=== PATIENT | female | born 1990 | race American Indian/Alaskan Native ===

== ENCOUNTER 2016-08-03 12:43 | Emergency (ER) | payer MEDICAID ==
[2016-08-03 14:31] LABS: Bilirubin,Urine NEG (Negative); Blood,Urine NEG (Negative); Ketones,Urine NEG (Negative); Leukocyte Esterase,Urine LG (Negative); Mucus,Urine FEW /HPF; Nitrite,Urine NEG (Negative); Protein,Urine <15 mg/dL mg/dL (Negative); Urobilinogen,Urine < 2.0 mg/dL (<2.0)
--- NOTE | 2016-08-03 16:18 | Emergency Department Report ---
HPI - General Chief Complaint: Urogenital-Female Time Seen by Provider: 08/03/16 15:57 - HPI HPI: Patient is a 26-year-old female who presents to ED complaining of vaginal discharge times one week. Patient states vaginal itching began prior to discharge. Patient denies recent intercourse. Patient states she used a new scented tissue aprior to onset of symptoms. State patient states vaginal region is confined to both inside and outside of her genitourinary area. Patient denies fevers/chills/nausea/vomiting/abdominal pain /shortness of shortness of breath as chest pain or any other problems. ED Past Medical Hx - Past Medical History Hx Sickle Cell Disease: Yes (TRAIT) - Surgical History Additional Surgical History: X 2. TONSILLECTOMY. TUBAL LIGATION - Social History Smoking Status: Never Smoker Substance Use Type: None - Medications Home Medications: Home Medications Medication Instructions Recorded Confirmed Last Taken Type Terconazole [Terazol 3 Vag Cream] 1 applicator VG QHS #20 gm 08/03/16 Unknown Rx metroNIDAZOLE [Flagyl] 500 mg PO Q12HR #14 tab 08/03/16 Unknown Rx ED Review of Systems ROS: Stated complaint: VAG IRRITATION /BURNING URINATION Other details as noted in HPI Constitutional: denies: chills, fever Eyes: denies: eye pain, eye discharge, vision change ENT: denies: ear pain, throat pain Respiratory: denies: cough, shortness of breath, wheezing Cardiovascular: denies: chest pain, palpitations Endocrine: no symptoms reported Gastrointestinal: denies: abdominal pain, nausea, diarrhea Genitourinary: discharge. denies: urgency, dysuria, frequency, hematuria, abnormal menses, dyspareunia Musculoskeletal: denies: back pain, joint swelling, arthralgia Skin: denies: rash, lesions Neurological: denies: headache, weakness, paresthesias Psychiatric: denies: anxiety, depression Hematological/Lymphatic: denies: easy bleeding, easy bruising Physical Exam - Physical Exam Vital Signs: Vital Signs 08/03/16 13:30 Temperature 98.5 F Pulse Rate 72 Respiratory 17 Rate Blood Pressure 120/66 O2 Sat by Pulse 100 Oximetry Physical Exam: GENERAL: Alert and oriented x3, no apparent distress, Normal Gait, atraumatic. HEAD: Head is normocephalic and a-traumatic. EYES: Extra ocular muscles are intact. Pupils are equal, round, and reactive to light and accommodation. MOUTH:Mouth is well hydrated and without lesions Patent airways. NECK: Supple. Non edematous, No carotid bruits. No lymphadenopathy or thyromegaly. LUNGS: Symetrical with respiration, No wheezing, no rales or crackles, CTAB. HEART: S1, S2 present, regular rate and rhythm without murmur, no rubs, no gallops. ABDOMEN: No organomegaly was noted,Positive bowel sounds, soft, and non- distended. . Nontender to palpation on all Quadrants, NO CVA tenderness. GENITOURINARY: External genitalia without erythema, exudate or discharge. Vaginal vault is with severe greenish, clumpy discharge. Cervix is of normal color without lesion. Cervical os is closed. Mild odor during exam No bleeding noted. Uterus is noted to be of normal size and nontender. No cervical motion tenderness. No masses are palpated. The adnexa are without masses or tenderness. EXTREMITIES/MUSCULOSKELETAL: No cyanosis, clubbing, rash, lesions or edema. Full ROM bilaterally. UE/LE Pulses 2+ bilaterally. LE and UE 5+ strength bilaterally NEUROLOGIC: No focal Deficit, Cranial nerves II through XII are grossly intact. No loss of sensation, PSYCHIATRIC: Mood is congruent with affect, denies suicidal or homicidal ideations. SKIN: Warm and dry, No lesions, No ulceration or induration present. ED Course Vital Signs 08/03/16 13:30 Temperature 98.5 F Pulse Rate 72 Respiratory 17 Rate Blood Pressure 120/66 O2 Sat by Pulse 100 Oximetry ED Medical Decision Making - Medical Decision Making 26-year-old female resents of a Cherry vaginitis and bacterial vaginosis. Diflucan and given in ED. Wet prep shows positive yeast, greater than 20% clue cells. Negative for trichomoniasis. GC cultures ordered. Discussed findings with patient. Discussed the patient follow-up with CR[facility] MANAGER or health department for further city testing if needed. Discussed home medication of antibody and vaginal cream for the itching take medication as prescribed. Patient states she will take medication as prescribed and follow-up as referred. Critical care attestation.: If time is entered above; I have spent that time in minutes in the direct care of this critically ill patient, excluding procedure time. ED Disposition Clinical Impression: Cherry vaginitis, Bacterial vaginosis Disposition: DISCHARGED TO HOME OR SELFCARE Is pt being admited?: No Does the pt Need Aspirin: No Condition: Stable Instructions: Bacterial Vaginosis (ED), Vulvovaginal Candidiasis (ED), Vaginitis (ED) Additional Instructions: Take medications as prescribed. Follow-up with primary care Prescriptions: Terconazole [Terazol 3 Vag Cream] 1 applicator VG QHS #20 gm metroNIDAZOLE [Flagyl] 500 mg PO Q12HR #14 tab Referrals: PRIMARY CAREMD [Primary Care Provider] - 3-5 Days ANNITA HENRIQUEZ MD [Referring] - 3-5 Days [facility] [Outside] - 3-5 Days Forms: STI Treatment and Prevention, Work/School Release Form(ED) Time of Disposition: 17:17
[2016-08-03 17:40] VITALS: BP 108/74
[2016-08-03] MEDS ORDERED: DIFLUCAN PO ONE (18:00)
== END 2016-08-03 17:38 | disposition home or self-care (01) ==
LOC: ED 12:43
DX: B37.3 Candidiasis of vulva and vagina (principal); N76.0 Acute vaginitis; Z98.51 Tubal ligation status; Z90.89 Acquired absence of other organs
CPT/HCPCS: 81001; 81025; 87210; 99283

== ENCOUNTER 2018-12-15 15:48 | Emergency (ER) | payer MEDICAID, OTHER ==
[2018-12-15 16:25] VITALS: BP 120/67
--- NOTE | 2018-12-15 16:25 | Event Note ---
ED Screening Note Date of service: 12/15/18 Time: 16:22 ED Screening Note: 28 y/o female comes in for abd pain times 2 weeks. Cramping. No vag bleeding, No vag discharge. LMP 12/06/18. +nausea no vomiting no fever or chill. Has tubes tied. This initial assessment/diagnostic orders/clinical plan/treatment(s) is/are subject to change based on patients health status, clinical progression and re- assessment by fellow clinical providers in the ED. Further treatment and workup at subsequent clinical providers discretion. Patient/guardian urged not to elope from the ED as their condition may be serious if not clinically assessed and managed. Initial orders include:
[2018-12-15 17:17] LABS: HCG Qualitative,Urine Negative (Negative)
[2018-12-15 17:19] LABS: Bilirubin,Urine NEG (Negative); Blood,Urine NEG (Negative); Color,Urine Yellow (Yellow); Mucus,Urine 3+ /HPF; Protein,Urine <15 mg/dL mg/dL (Negative); WBC,Urine < 1.0 /HPF (0.0-6.0)
[2018-12-15] MEDS ORDERED: IBUPROFEN PO ONE (18:13)
[2018-12-15] MEDS ORDERED: ZOFRAN ODT PO ONE (18:13)
--- NOTE | 2018-12-15 18:17 | Emergency Department Report ---
ED Abdominal Pain HPI - General Chief Complaint: Abdominal Pain Stated Complaint: ABD PAIN/NAUSEA Time Seen by Provider: 12/15/18 16:21 Source: patient Mode of arrival: Ambulatory Limitations: No Limitations - History of Present Illness Initial Comments: pt is a 28 y/o female comes in for abd pain times 2 weeks. described as superpubic cramping. No vag bleeding, No vag discharge no fever no chills . LMP 12/06/18. +nausea no vomiting no fever or chill. Has tubes tied denies possibilty for STI MD Complaint: abdominal pain Onset/Timin -: week(s) Location: suprapubic Radiation: suprapubic Migration to: suprapubic Severity: moderate Severity scale (0 -10): 3 Quality: cramping Consistency: intermittent Improves With: nothing Worsens With: nothing Associated Symptoms: nausea. denies: vomiting, diarrhea, fever, chills, constipation, dysuria, hematemesis, melena - Related Data LMP Date: 12/06/18 Previous Rx's Medication Instructions Recorded Last Taken Type Terconazole [Terazol 3 Vag Cream] 1 applicator VG QHS #20 gm 08/03/16 Unknown Rx metroNIDAZOLE [Flagyl] 500 mg PO Q12HR #14 tab 08/03/16 Unknown Rx Ibuprofen [Motrin 800 MG tab] 800 mg PO Q8HR PRN #30 tablet 12/15/18 Unknown Rx Nitrofurantoin [place]/M-Cryst 100 mg PO Q12HR 7 Days #14 capsule 12/15/18 Unknown Rx [Macrobid CAP] Allergies Allergy/AdvReac Type Severity Reaction Status Date / Time No Known Allergies Allergy Unverified 08/03/16 13:29 ED Review of Systems ROS: Stated complaint: ABD PAIN/NAUSEA Other details as noted in HPI Constitutional: denies: chills, fever Eyes: denies: eye pain, eye discharge, vision change ENT: denies: ear pain, throat pain Respiratory: denies: cough, shortness of breath, wheezing Cardiovascular: denies: chest pain, palpitations Endocrine: no symptoms reported Gastrointestinal: nausea. denies: abdominal pain, vomiting, diarrhea, constipation, melena Genitourinary: frequency. denies: urgency, dysuria, hematuria, discharge Musculoskeletal: denies: back pain, joint swelling, arthralgia Skin: denies: rash, lesions Neurological: denies: headache, weakness, numbness, paresthesias, confusion, abnormal gait, vertigo Psychiatric: denies: anxiety, depression Hematological/Lymphatic: denies: easy bleeding, easy bruising ED Past Medical Hx - Past Medical History Hx Sickle Cell Disease: Yes (TRAIT) - Surgical History Additional Surgical History: X 2. TONSILLECTOMY. TUBAL LIGATION - Social History Smoking Status: Never Smoker Substance Use Type: None - Medications Home Medications: Home Medications Medication Instructions Recorded Confirmed Last Taken Type Terconazole [Terazol 3 Vag Cream] 1 applicator VG QHS #20 gm 08/03/16 Unknown Rx metroNIDAZOLE [Flagyl] 500 mg PO Q12HR #14 tab 08/03/16 Unknown Rx Ibuprofen [Motrin 800 MG tab] 800 mg PO Q8HR PRN #30 tablet 12/15/18 Unknown Rx Nitrofurantoin [place]/M-Cryst 100 mg PO Q12HR 7 Days #14 capsule 12/15/18 Unknown Rx [Macrobid CAP] ED Physical Exam - General Limitations: No Limitations General appearance: alert, in no apparent distress - Head Head exam: Present: atraumatic, normocephalic - Eye Eye exam: Present: normal appearance, EOMI Pupils: Present: normal accommodation - ENT ENT exam: Present: mucous membranes moist - Neck Neck exam: Present: normal inspection, full ROM. Absent: tenderness, lymphadenopathy - Respiratory Respiratory exam: Present: normal lung sounds bilaterally. Absent: respiratory distress, stridor, chest wall tenderness - Cardiovascular Cardiovascular Exam: Present: regular rate, normal rhythm, normal heart sounds. Absent: systolic murmur, diastolic murmur, rubs, gallop - GI/Abdominal GI/Abdominal exam: Present: soft, normal bowel sounds. Absent: distended, tenderness, guarding, rebound, rigid, bruit, hernia - Rectal Rectal exam: Present: deferred - Extremities Exam Extremities exam: Present: normal inspection, full ROM, normal capillary refill. Absent: tenderness, pedal edema, joint swelling, calf tenderness - Back Exam Back exam: Present: normal inspection, full ROM. Absent: tenderness, CVA tenderness (R), CVA tenderness (L), muscle spasm, paraspinal tenderness, vertebral tenderness, rash noted - Neurological Exam Neurological exam: Present: alert, oriented X3, CN II-XII intact, normal gait - Psychiatric Psychiatric exam: Present: normal affect, normal mood - Skin Skin exam: Present: warm, dry, intact, normal color. Absent: rash ED Course Vital Signs 12/15/18 16:21 Temperature 98.1 F Pulse Rate 71 Respiratory 18 Rate Blood Pressure 120/67 O2 Sat by Pulse 100 Oximetry ED Medical Decision Making - Lab Data Labs 12/15/18 16:00 Urine Color Yellow Urine Turbidity Clear Urine pH 6.0 Ur Specific [place] 1.018 Urine Protein <15 mg/dl Urine Glucose (UA) Neg Urine Ketones Tr Urine Blood Neg Urine Nitrite Neg Ur Reducing Substances Not Reportable Urine Bilirubin Neg Urine Ictotest Not Reportable Urine Urobilinogen 2.0 Ur Leukocyte Esterase Neg Urine WBC (Auto) < 1.0 Urine RBC (Auto) 2.0 U Epithel Cells (Auto) 2.0 Urine Mucus 3+ Urine HCG, Qual Negative - Medical Decision Making UA normal, abd pain is mild pt is tolerating po intake , she denies vaginal dischareg no abd bleeding, pt is not there is no fever or chills, plan; ibuprofen prn pain, macrobid x 7 days for dysuria pt will follow up with [facility] SYSTEMS ANALYST in 2-3 days, pt verbalized agreement and understanding of same. Critical care attestation.: If time is entered above; I have spent that time in minutes in the direct care of this critically ill patient, excluding procedure time. ED Disposition Clinical Impression: Dysuria Abdominal pain Qualifiers: Abdominal location: generalized Qualified Code(s): R10.84 - Generalized abdominal pain Disposition: TO HOME OR SELFCARE Is pt being admited?: No Condition: Stable Instructions: Abdominal Pain (ED), Dysuria (ED) Prescriptions: Nitrofurantoin [place]/M-Cryst [Macrobid CAP] 100 mg PO Q12HR 7 Days #14 capsule Ibuprofen [Motrin 800 MG tab] 800 mg PO Q8HR PRN #30 tablet PRN Reason: pain Referrals: BRY WRIGHT MD [Staff Physician] - 3-5 Days Forms: Work/School Release Form(ED) Time of Disposition: 18:22
== END 2018-12-15 19:00 | disposition home or self-care (01) ==
LOC: ED 15:48
DX: R10.30 Lower abdominal pain, unspecified (principal); R30.0 Dysuria; D57.00 Hb-SS disease with crisis, unspecified; Z90.89 Acquired absence of other organs; Z98.51 Tubal ligation status; Z79.899 Other long term (current) drug therapy
CPT/HCPCS: 81001; 81025; Q0162